=== PATIENT | female | born 1940 | race Caucasian/White ===

== ENCOUNTER 2016-11-09 10:00 | Inpatient (IN) | payer MEDICARE ==
[~2016-11-09] VITALS: Ht 167.6 cm; Wt 61.7 kg
[~2016-11-09 10:00] MED LIST: AMLO5TAB4 PO; LEVO50TA PO; SULF1TAB24 PO
[2016-11-09] MEDS ORDERED: SODIUM CHLORIDE FLUSH 10ML SYR IVF ONE (11:00)
[2016-11-09] MEDS ORDERED: METO25TA35 PO (11:24)
[2016-11-09] MEDS ORDERED: RIVA20TA PO (11:24)
[2016-11-09 11:37] LABS: ASPARTATE AMINO TRANSFERASE 10 U/L (15-37); BLOOD UREA NITROGEN 18 mg/dL (7-18)
[2016-11-09 11:42] LABS: IS PT STATUS REG ER OR PRE ER? YES
[2016-11-09] MEDS ORDERED: BISACODYL 10 MG SUPP PR PRN (13:00)
[2016-11-09] MEDS ORDERED: ACETAMINOPHEN 325 MG TABLET PO PRN (13:00)
[2016-11-09] MEDS ORDERED: MECLIZINE 12.5 MG TABLET PO PRN (13:00)
[2016-11-09] MEDS ORDERED: ENALAPRILAT 1.25 MG/ML, 2ML IVPush PRN (13:00)
[2016-11-09] MEDS ORDERED: hydrALAzine 20 MG/ML, 1ML IVPush PRN (13:00)
[2016-11-09] MEDS ORDERED: METOCLOPRAMIDE 5 MG/ML, 2ML IVPush PRN (13:00)
[2016-11-09] MEDS ORDERED: LABETALOL 5MG/ML, 20ML IVPush PRN (13:00)
[2016-11-09] MEDS ORDERED: POLYETHYLENE GLYCOL 17 GM PACKET PO PRN (13:00)
[2016-11-09] MEDS ORDERED: ONDANSETRON 2MG/ML, 2ML IVPush PRN (13:00)
[2016-11-09] MEDS ORDERED: DOCUSATE 100 MG CAPSULE PO PRN (13:00)
[2016-11-09 13:14] LABS: IS PT STATUS REG ER OR PRE ER? YES
[2016-11-09 13:45] VITALS: BP 134/85
[2016-11-09 18:43] VITALS: BP 133/89
[2016-11-09 19:03] LABS: IS PT STATUS REG ER OR PRE ER? NO
[2016-11-09] MEDS: METOPROLOL TARTRATE 25 MG TABLET PO SCH (21:37)
[2016-11-10 01:57] VITALS: BP 120/80
[2016-11-10 05:55] LABS: BLOOD UREA NITROGEN 18 mg/dL (7-18)
[2016-11-10] MEDS ORDERED: LEVOTHYROXINE 50 MCG TABLET PO SCH (06:00)
[2016-11-10 06:07] LABS: ASPARTATE AMINO TRANSFERASE 12 U/L (15-37)
[2016-11-10 08:28] VITALS: BP 129/81
[2016-11-10] MEDS: RIVAROXABAN 20 MG TABLET PO SCH (11:31)
[2016-11-10] MEDS: METOPROLOL TARTRATE 25 MG TABLET PO SCH ×2 (11:31→21:30)
[2016-11-10] MEDS: AMLODIPINE 5 MG TABLET PO SCH (11:31)
[2016-11-10] MEDS: POTASSIUM CHLORIDE 20 MEQ TAB.ER.PRT PO SCH ×3 (14:24→21:30)
[2016-11-10] MEDS: CEFTRIAXONE PMX 1GM/50ML 50 ML IV SCH (14:24)
[2016-11-10 14:46] VITALS: BP 116/73
[2016-11-10] MEDS: MECLIZINE 12.5 MG TABLET PO SCH ×2 (17:51→21:30)
[2016-11-10 19:17] VITALS: BP 121/77
[2016-11-11 02:35] VITALS: BP 111/74
[2016-11-11] MEDS: LEVOTHYROXINE 75 MCG TABLET PO SCH (05:28)
[2016-11-11 06:12] LABS: BLOOD UREA NITROGEN 25 mg/dL (7-18)
[2016-11-11 06:20] LABS: DIFF TOTAL CELLS COUNTED 100 CELL DIFF
[2016-11-11 06:22] LABS: VERIFY COUNTS? YES
[2016-11-11 08:36] VITALS: BP 130/88
[2016-11-11] MEDS: MECLIZINE 12.5 MG TABLET PO SCH ×3 (08:37→21:06)
[2016-11-11] MEDS: METOPROLOL TARTRATE 25 MG TABLET PO SCH ×2 (08:37→21:06)
[2016-11-11] MEDS: AMLODIPINE 5 MG TABLET PO SCH (08:37)
[2016-11-11] MEDS: RIVAROXABAN 20 MG TABLET PO SCH (09:52)
[2016-11-11] MEDS: CEFTRIAXONE PMX 1GM/50ML 50 ML IV SCH (12:40)
[2016-11-11 12:43] VITALS: BP_SYST 108; BP_SYST 114; BP_DIAS 67; BP_DIAS 74; BP_DIAS 77
[2016-11-11] MEDS ORDERED: SODIUM CHLORIDE 0.9% 1,000 ML IV SCH (18:30)
[2016-11-11 19:21] VITALS: BP 121/74
[2016-11-11] MEDS: SODIUM CHLORIDE 0.9% 1,000 ML IV SCH (21:06)
[2016-11-12 02:58] VITALS: BP 119/77
[2016-11-12 05:36] LABS: BLOOD UREA NITROGEN 25 mg/dL (7-18)
[2016-11-12] MEDS: SODIUM CHLORIDE 0.9% 1,000 ML IV SCH (05:40)
[2016-11-12] MEDS: LEVOTHYROXINE 75 MCG TABLET PO SCH (05:40)
[2016-11-12 07:54] VITALS: BP 115/73
[2016-11-12] MEDS: METOPROLOL TARTRATE 25 MG TABLET PO SCH (09:42)
[2016-11-12] MEDS: RIVAROXABAN 20 MG TABLET PO SCH (09:42)
[2016-11-12] MEDS: AMLODIPINE 5 MG TABLET PO SCH (09:42)
[2016-11-12] MEDS: MECLIZINE 12.5 MG TABLET PO SCH (09:43)
[2016-11-12 12:24] VITALS: BP 120/75
[2016-11-12] MEDS ORDERED: TRAM50TA2 PO (13:41)
[2016-11-12] MEDS ORDERED: MECL12.52 PO (13:41)
[2016-11-12] MEDS ORDERED: LEVO75TA PO (13:41)
== END 2016-11-12 16:00 | DRG 640 ==
LOC: ED 11:35 → EDIP 12:09 → 4WST 13:20 → 4EST 19:53
PROVIDERS: ADMIT Internal Medicine; ATTEND Internal Medicine
DX: E87.6 Hypokalemia (principal); G93.41 Metabolic encephalopathy; R53.2 Functional quadriplegia; N39.0 Urinary tract infection, site not specified; D68.69 Other thrombophilia; E03.9 Hypothyroidism, unspecified; E86.0 Dehydration; F01.50 Vascular dementia, unspecified severity, without behavioral disturbance, psychotic disturbance, mood disturbance, and anxiety; I10 Essential (primary) hypertension; I48.2 Chronic atrial fibrillation; I95.1 Orthostatic hypotension; Z79.01 Long term (current) use of anticoagulants; Z86.73 Personal history of transient ischemic attack (TIA), and cerebral infarction without residual deficits; Z87.891 Personal history of nicotine dependence; Z88.0 Allergy status to penicillin
CPT/HCPCS: 36415; 70450; 71010; 80048; 80053; 81001; 83735; 84443; 84484; 85025; 85610; 85730; 87086; 93005; 93306; 99285; J0696; J7030

== ENCOUNTER 2016-11-26 18:44 | Inpatient (IN) | payer MEDICARE ==
[~2016-11-26] VITALS: Ht 167.6 cm; Wt 61.1 kg
[~2016-11-26 18:44] MED LIST changes: +LEVO75TA PO; +MECL12.52 PO; +METO25TA35 PO; +RIVA20TA PO; +TRAM50TA2 PO
[2016-11-26] MEDS ORDERED: SODIUM CHLORIDE 0.9% 1,000 ML IV ONE (18:45)
[2016-11-26] MEDS ORDERED: SODIUM CHLORIDE FLUSH 10ML SYR IVF ONE (19:00)
[2016-11-26] MEDS ORDERED: PLEASE ENTER ALLERGIES MC SCH ×2 (19:00)
[2016-11-26] MEDS ORDERED: PLEASE ENTER HEIGHT AND WEIGHT MC SCH (19:00)
[2016-11-26 19:24] LABS: ASPARTATE AMINO TRANSFERASE 17 U/L (15-37); BLOOD UREA NITROGEN 18 mg/dL (7-18)
[2016-11-26 19:28] LABS: IS PT STATUS REG ER OR PRE ER? YES
[2016-11-26] MEDS ORDERED: CEFTRIAXONE 1,000 MG in SODIUM CHLORIDE 0.9% 50 ML IV ONE (21:00)
[2016-11-26] MEDS ORDERED: CEFTRIAXONE PMX 1GM/50ML 50 ML ONE (21:04)
[2016-11-26] MEDS ORDERED: CEFTRIAXONE PMX 1GM/50ML 50 ML IV ONE (21:05)
[2016-11-26] MEDS ORDERED: HEPARIN 5,000 UNITS/ML, 1ML SQ SCH (22:00)
[2016-11-26] MEDS ORDERED: CEFTRIAXONE 1,000 MG in SODIUM CHLORIDE 0.9% 50 ML IV SCH (22:00)
[2016-11-26] MEDS ORDERED: BISACODYL 10 MG SUPP PR PRN (22:00)
[2016-11-26] MEDS ORDERED: POLYETHYLENE GLYCOL 17 GM PACKET PO PRN (22:00)
[2016-11-26] MEDS ORDERED: ONDANSETRON 2MG/ML, 2ML IVPush PRN (22:00)
[2016-11-26] MEDS ORDERED: ACETAMINOPHEN 325 MG TABLET PO PRN (22:00)
[2016-11-26] MEDS ORDERED: NS + 20MEQ KCL 1,000 ML IV ONE (22:10)
[2016-11-26] MEDS ORDERED: HEPARIN 5,000 UNITS/ML, 1ML ONE (22:10)
[2016-11-26] MEDS: NS + 20MEQ KCL 1,000 ML IV SCH (22:14)
[2016-11-26] MEDS ORDERED: MECLIZINE 12.5 MG TABLET PO PRN (22:30)
[2016-11-26 22:38] LABS: BLOOD UREA NITROGEN 18 mg/dL (7-18)
[2016-11-26] MEDS ORDERED: CEFTRIAXONE PMX 1GM/50ML 50 ML IV SCH (23:03)
[2016-11-26 23:38] VITALS: BP 148/90
[2016-11-27 02:08] VITALS: BP 136/75
[2016-11-27] MEDS: LEVOTHYROXINE 75 MCG TABLET PO SCH (06:00)
[2016-11-27] MEDS: RIVAROXABAN 20 MG TABLET PO SCH (08:00)
[2016-11-27] MEDS: METOPROLOL TARTRATE 25 MG TABLET PO SCH (09:00)
[2016-11-27] MEDS: SENNA/DOCUSATE TABLET PO SCH (09:00)
[2016-11-27] MEDS: AMLODIPINE 5 MG TABLET PO SCH (09:00)
[2016-11-27] MEDS: NS + 20MEQ KCL 1,000 ML IV SCH ×2 (10:40→22:50)
[2016-11-28] MEDS: LEVOTHYROXINE 75 MCG TABLET PO SCH (06:00)
[2016-11-28 06:32] VITALS: BP 129/83
[2016-11-28] MEDS: RIVAROXABAN 20 MG TABLET PO SCH (08:00)
[2016-11-28] MEDS: SENNA/DOCUSATE TABLET PO SCH (09:00)
[2016-11-28] MEDS: METOPROLOL TARTRATE 25 MG TABLET PO SCH (09:00)
[2016-11-28] MEDS: AMLODIPINE 5 MG TABLET PO SCH (09:00)
[2016-11-28 14:21] VITALS: BP 127/83
[2016-11-28] MEDS ORDERED: VANCOMYCIN PER PHARMACY MC PRN (15:00)
[2016-11-28] MEDS ORDERED: FOSFOMYCIN 3 GM PACKET PO SCH (15:30)
[2016-11-28 19:33] VITALS: BP 127/85
[2016-11-29 02:37] VITALS: BP 132/79
[2016-11-29 05:42] LABS: BLOOD UREA NITROGEN 17 mg/dL (7-18)
[2016-11-29] MEDS: LEVOTHYROXINE 75 MCG TABLET PO SCH (06:11)
[2016-11-29 06:54] VITALS: BP 114/72
[2016-11-29] MEDS: RIVAROXABAN 20 MG TABLET PO SCH (08:03)
[2016-11-29] MEDS: AMLODIPINE 5 MG TABLET PO SCH (08:03)
[2016-11-29] MEDS: SENNA/DOCUSATE TABLET PO SCH (08:04)
[2016-11-29] MEDS: METOPROLOL TARTRATE 25 MG TABLET PO SCH (08:04)
[2016-11-29] MEDS ORDERED: POTASSIUM CHLORIDE 20 MEQ TAB.ER.PRT PO ONE (11:30)
[2016-11-29 13:10] VITALS: BP 112/70
[2016-11-29] MEDS ORDERED: CEFTRIAXONE PMX 1GM/50ML 50 ML IV SCH (18:00)
[2016-11-29 19:26] VITALS: BP 119/76
[2016-11-30 01:38] VITALS: BP 134/83
[2016-11-30] MEDS: LEVOTHYROXINE 75 MCG TABLET PO SCH (05:47)
[2016-11-30 07:03] VITALS: BP 134/74
[2016-11-30] MEDS: AMLODIPINE 5 MG TABLET PO SCH (08:06)
[2016-11-30] MEDS: RIVAROXABAN 20 MG TABLET PO SCH (08:06)
[2016-11-30] MEDS: METOPROLOL TARTRATE 25 MG TABLET PO SCH (08:06)
[2016-11-30] MEDS: SENNA/DOCUSATE TABLET PO SCH (08:06)
[2016-11-30 13:23] VITALS: BP 124/79
[2016-11-30] MEDS ORDERED: CEFD300C37 PO (16:48)
== END 2016-11-30 16:53 | disposition home or self-care (01) | DRG 689 ==
LOC: ED 19:20 → EDIP 21:00 → 3NE 23:01
PROVIDERS: ADMIT Internal Medicine; ATTEND Internal Medicine
DX: N39.0 Urinary tract infection, site not specified (principal); G93.41 Metabolic encephalopathy; D68.69 Other thrombophilia; G30.0 Alzheimer's disease with early onset; N18.3 Chronic kidney disease, stage 3 (moderate); I48.2 Chronic atrial fibrillation; F02.80 Dementia in other diseases classified elsewhere, unspecified severity, without behavioral disturbance, psychotic disturbance, mood disturbance, and anxiety; E03.9 Hypothyroidism, unspecified; E87.6 Hypokalemia; F01.50 Vascular dementia, unspecified severity, without behavioral disturbance, psychotic disturbance, mood disturbance, and anxiety; I12.9 Hypertensive chronic kidney disease with stage 1 through stage 4 chronic kidney disease, or unspecified chronic kidney disease; I35.1 Nonrheumatic aortic (valve) insufficiency; Z66 Do not resuscitate; Z79.899 Other long term (current) drug therapy; Z86.73 Personal history of transient ischemic attack (TIA), and cerebral infarction without residual deficits; Z87.891 Personal history of nicotine dependence; Z95.0 Presence of cardiac pacemaker; Z88.0 Allergy status to penicillin
CPT/HCPCS: 36415; 71010; 80048; 80053; 81001; 82040; 83735; 84439; 84443; 84484; 85025; 87077; 87086; 93005; 96361; 96365; J0696; J1644; J3480; J7030